=== PATIENT | female | born 1970 | race Caucasian/White ===

== ENCOUNTER 2018-08-05 16:00 | Emergency (ER) | payer OTHER ==
[~2018-08-05 16:00] MED LIST: IOPAMIDOL (ISOVUE-300) 100 ML BTL ONE
--- NOTE | 2018-08-05 16:35 | EDPHY ---
H & P Stated Complaint: Sent for gastro follow up s irregular CT Time Seen by Provider: 08/05/18 16:08 HPI/ROS: CHIEF COMPLAINT: Painless jaundice HISTORY OF PRESENT ILLNESS: 47-year-old female status post cholecystectomy presents with painless jaundice. She underwent a cosmetic procedure using Kybella 12 days ago, followed by torso lymphatic massage therapy. 4 days ago, she noticed that her skin was more yellow than the usual. Over the next few days, the jaundice increased and was associated with lethargy. She saw her primary care physician yesterday and had an elevated bilirubin of 6.7. CT scan of the abdomen and pelvis today revealed stranding around the bile duct. She was sent here for further evaluation. She feels much better today and the jaundice has almost completely resolved. REVIEW OF SYSTEMS: complete 10 point ROS reviewed and is negative except for the noted elements in the HPI - Personal History Current Tetanus/Diphtheria Vaccine: No - Medical/Surgical History Hx Asthma: No Hx Chronic Respiratory Disease: No Hx Diabetes: No Hx Cardiac Disease: No Hx Renal Disease: No Hx Cirrhosis: No Hx Alcoholism: No Hx HIV/AIDS: No Hx Splenectomy or Spleen Trauma: No Other PMH: cholycystectomy, Hoshimotos - Social History Smoking Status: Never smoked Alcohol Use: Sober Drug Use: None - Physical Exam Exam: General Appearance: Alert, pleasant Eyes: Pupils equal and round, no conjunctival pallor or injection, mild scleral icterus ENT, Mouth: Mucous membranes moist Neck: Normal inspection Respiratory: Lungs are clear to auscultation Cardiovascular: Regular rate and rhythm Gastrointestinal: Abdomen is soft and nontender Neurological: A&O, nonfocal, normal gait Skin: Warm and dry, no jaundice and no rash Extremities: Nontender, no pedal edema Psychiatric: Mood and affect normal Constitutional: Initial Vital Signs Temperature (C) 36.7 C 08/05/18 16:03 Heart Rate 67 08/05/18 16:03 Respiratory Rate 16 08/05/18 16:03 Blood Pressure 121/97 H 08/05/18 16:03 O2 Sat (%) 98 08/05/18 16:03 O2 Delivery Mode Room Air Allergies/Adverse Reactions: No Known Allergies Allergy (Unverified 08/05/18 16:03) Medical Decision Making - Diagnostics Imaging Results: Abdomen CT 08/05/18 18:00 Impression: There are postcholecystectomy changes. Stranding around the common bile duct and first/second portions of the duodenum is noted. Associated peripancreatic and krista hepatic adenopathy. Findings either represent cholangitis or duodenitis. Given patient's jaundice, a cholangitis is favored. Findings and recommendations discussed with Jerilyn Patterson at 1552 hour, 2018. ED Course/Re-evaluation: This patient presents with painless jaundice, now much better and clinically the jaundice has almost completely resolved. Repeat LFTs today are relatively unchanged from yesterday's labs however. I consulted Dr. Odonnell, who requests further labs, including coags and autoimmune markers; if PT/PTT WNL, ok to d/c home with outpt f/u with GI or PCP on Wednesday/Wednesday. d/w Dr. Pattreson, will f /u with pt. Differential Diagnosis: Includes though not limited to acute cholangitis, medication effect, obstructive jaundice, tumor, CBD stone - Data Points Laboratory Results: Laboratory Results 08/05/18 16:43 08/05/18 16:43 Departure - Departure Disposition: Home, Routine, Self-Care Clinical Impression: Jaundice Condition: Good Instructions: Jaundice (ED) Additional Instructions: I consulted Dr. Odonnell (GI doc) today. He advises repeat labs in 2-4 days and follow up with her primary care physician or with GI on Wednesday. Over the weekend, please return with increasing jaundice, abdominal pain, vomiting or any concerns. Referrals: Vin Odonnell MD [Medical Doctor] - As per Instructions
[2018-08-05 16:53] LABS: PLATELET COUNT 269 10^3/uL (150-400)
[2018-08-05 17:39] LABS: HEPATITIS B SURFACE ANTIGEN NEGATIVE (NEGATIVE); INR 0.94 (0.83-1.16); PROTIME(PATIENT) 12.2 SEC (12.0-15.0)
[2018-08-05 17:44] LABS: HEPATITIS A ANTIBODY IGM (BCH) NEGATIVE (NEGATIVE); HEPATITIS B CORE AB IGM NEGATIVE (NEGATIVE)
[2018-08-05 17:57] LABS: HEPATITIS C ANTIBODY TOTAL NEGATIVE (NEGATIVE)
[2018-08-05 18:34] VITALS: BP 133/72
== END 2018-08-05 18:33 | disposition home or self-care (01) ==
LOC: SUPCPDRO 16:00 → EDSTATUS 16:00
DX: R17 Unspecified jaundice (principal); Z90.49 Acquired absence of other specified parts of digestive tract
CPT/HCPCS: 82390-90; 86255-90; G0472; Q9967